=== PATIENT | female | born 2000 | race Caucasian/White ===

== ENCOUNTER 2024-05-25 07:56 | Outpatient (REF) | payer OTHER, SELFPAY ==
--- NOTE | 2024-05-25 08:11 | ECG_ITS ---
Test Reason : QTC CHECK Blood Pressure : / mmHG Vent. Rate : 078 BPM Atrial Rate : 078 BPM P-R Int : 122 ms QRS Dur : 088 ms QT Int : 410 ms P-R-T Axes : 026 034 028 degrees QTc Int : 467 ms Normal sinus rhythm with sinus arrhythmia Normal ECG No previous ECGs available Referred By: Rebekah Miramontes Electronically Signed By:Chai Navarrete
[2024-05-25 08:29] LABS: MANUAL DIFF FLAG NO
[2024-05-25 09:20] LABS: Basophils Percent Auto 0.5 % (0-2); Eosinophils Absolute Auto 0.2 X10*3/uL (0.0-0.4); Eosinophils Percent Auto 2.4 % (0-4); Hematocrit 41.7 % (37.0-47.0); Hemoglobin 14.3 g/dl (12.0-16.0); Imm Gran Abs Auto 0.01 X10*3/uL (0.00-0.03); Imm Gran Pct Auto 0.1 % (0.0-0.4); Lymphocytes Absolute Auto 2.9 X10*3/uL (1.2-4.9); Lymphocytes Percent Auto 36.1 % (20-40); Mean Corpuscular HGB Conc 34.3 g/dl (31.0-35.0); Mean Corpuscular Hemoglobin 30.2 pg (27.0-33.0); Mean Platelet Volume 9.1 fL (9.4-12.3); Monocytes Absolute Auto 0.6 X10*3/uL (0.1-1.2); Monocytes Percent Auto 6.9 % (2-11); Neutrophils Absolute Auto 4.3 x10*3/uL (2.0-8.3); Platelet Count 421 X10*3/uL (160-400); Red Blood Count 4.74 X10*6/uL (4.20-5.50); Red Cell Distribution Width 11.9 % (11.0-16.0)
[2024-05-25 09:28] LABS: Estimated Average Glucose 108 mg/dL; Hemoglobin A1c % 5.4 % (<6.0)
[2024-05-25 09:57] LABS: Alanine Aminotransferase 20 U/L (0-31); Albumin Level 4.3 g/dL (3.5-5.0); Alkaline Phosphatase 81 U/L (39-117); Anion Gap 12 (12-20); Aspartate Amino Transferase 19 U/L (5-31); Bilirubin Total 0.3 mg/dL (0.0-1.0); Blood Urea Nitrogen 8 mg/dL (9-16); C Reactive Protein 1.83 mg/dL (< or = 0.50); Calcium 9.5 mg/dL (8.4-10.2); Carbon Dioxide 24 mmol/L (22-29); Chloride 108 mmol/L (96-108); Cholesterol 203 mg/dL (<200); Estimated Glomerular Filt Rate > 60; Glucose Fasting 105 mg/dL (60-99); HDL Cholesterol 40 mg/dL (>40); Iron 53 mcg/dL (30-160); LDL Cholesterol Calculated 147 mg/dL (<100); Magnesium 1.8 mg/dL (1.6-2.6); Percent Iron Saturation 20 % (15-50); Potassium 4.1 mmol/L (3.3-5.1); Sodium 140 mmol/L (135-145); Total Iron Binding Capacity 264 mcg/dL (228-428); Total Protein 7.6 g/dL (6.5-8.0); Triglycerides 84 mg/dL (<150); Unsaturated Iron Binding 211 ug/dL
[2024-05-25 09:59] LABS: Erythrocyte Sedimentation Rate 28 MM/HR (0-20)
[2024-05-25 10:24] LABS: Ferritin 43 ng/mL (10-122); Free T4 (Free Thyroxine) 0.98 ng/dL (0.71-1.85); HCG Quantitative < 2 mIU/mL; Thyroid Stimulating Hormone 1.39 uIU/mL (0.32-4.0); Vitamin D 25-OH Total 33.4 ng/mL (>30)
[2024-05-25 10:57] LABS: Folate 9.2 ng/mL (> or = 4.0); Vitamin B12 566 pg/mL (200-900)
[2024-05-26 07:03] LABS: Prolactin 9.2 ng/mL
[2024-05-28 15:28] LABS: Anti Nuclear Antibody Screen NEGATIVE (NEGATIVE)
== END 2024-05-25 07:57 | disposition home or self-care (01) ==
LOC: HO.LAB 07:56
PROVIDERS: PCP Nurse Practitioner Family; Visit Provider Psychiatry & Neurology Psychiatry
DX: F39 Unspecified mood [affective] disorder (principal); F41.0 Panic disorder [episodic paroxysmal anxiety]
CPT/HCPCS: 36415; 80053; 80061; 82306; 82607; 82728; 82746; 83036; 83540; 83735; 84146; 84439; 84443; 84702; 85025; 85652; 86038; 86140; 93005

== ENCOUNTER → 2024-05-25 08:11 | Outpatient (BNV) | payer OTHER, SELFPAY | PROVIDERS: PCP Nurse Practitioner Family; Visit Provider Internal Medicine Cardiovascular Disease | DX: F41.0 Panic disorder [episodic paroxysmal anxiety] (principal); F39 Unspecified mood [affective] disorder | CPT/HCPCS: 93010 ==

== ENCOUNTER 2024-05-30 10:00 | Outpatient (RCR) | payer OTHER, SELFPAY ==
[2024-05-17 10:42] VITALS: BP 104/70; PULSE 80; TEMP 37
[2024-05-17 10:47] VITALS: BMI 41.4
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
--- NOTE | 2024-05-17 15:13 | HO.PHP ---
Pt's case was opened and review in team.
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
--- NOTE | 2024-05-23 15:38 | HO.PHP ---
Spout Liner checked in with pt before pt left at the end of the day to assess pt's emotional state due to patients emtional reaction in the morning group and her processing of traumatic events. Pt did well identifying several supports and activities she will engage in later today that she finds soothing and grounding. Pt expressed appreciation for the group's support and recognized the emotions and the physical effects, how she mychal. Pt reports she will bring up her recent triggers with her therapist. Pt reports she is safe, future-oriented.
--- NOTE | 2024-05-24 10:02 | HO.PHP ---
PHP staff member faxed over a referral for med management to [facility]. PHP staff member is awaiting a call with appointment dates and times for Dina Cabrera.
--- NOTE | 2024-05-24 16:45 | HO.PHP ---
Pt was tearful in the hallway after the coping skills group at 11:40. Director Of Food And Nutrition and pt met at length to discuss what triggered her. Pt stated she began to think of her father and her 16 year old dog, both of whom she lost fairly recently. Pt sobbed for some time, processed some of her feelings. Pt was able to calm and speak about them fondly and acknowledged she has not really grieved, stated she did not get to see him before he so feels she did not get closure. Pt stated she does not often feel this sad but admitted groups have been bringing up strong emotions. Pt was encouraged to talk more about her grief with her therapist and to engage in comforting activities that help her with her grief in a safe way. Pt identified healthy ways to remember her father including hikes, listening to select songs and pt identifed coping skills to implement when feeling triggered in group including essential oils, deep breathing, and physical movements. Pt stated she wanted to go for a walk so would leave early for today, pt reported she was safe, no SI. Pt met with MAGO werner before leaving for the day.
--- NOTE | 2024-05-25 | P.PNPSP_ITS ---
Subjective Subjective Date of Service: 05/25/24 Reason For Visit: MDD,PTSD,ADHD Interim History: Patient continues to struggle with emotional reactivity and attention regulation. Patient has been on Vyvanse but has not taken in past 2 days, will have to check if she ran out. Rumination continues to be an issue. Is conflicted about medication changes. States preference is still to ween off medications, but is struggling with maintaining any stability. Will plan to check lab work and EKG. She has a history of TBI in infancy and had seizures until 2nd grade. Concerta at 54 mg caused seizures, which she said she warned her doctor about, and was switched to a lower dose of Vyvanse after patient was given 40 mg and still felt this was too high. She has been on 10 mg although can not give a clear account as to whether this is effective. SHe is also on Lamictal as a mood stabilizer, but perhaps this also helps mitigate risk of seizures from stimulant medication. For now will continue current dose. Medication Compliance: Yes Side effects from medications: No Attending Groups: Yes Review of Systems Acute medical concerns: No Mental Status Exam Mental Status Exam Narrative: Alert, oriented, in no acute distress. Calm, cooperative. Mood anxious, affect calmer, less reactive. Speech normal. Thought process linear, coherent, more goal-directed. Thought content related to stressors, future-oriented, transient hopelessness, denies any SI/i/u/p.?No paranoia or delusional content elicited. No evidence of psychosis. Insight and judgment intact. Diagnostics Vital Signs (24Hr): BMI result Body Mass Index 41.4 Assessment & Plan Assessment & Plan (1) MDD (major depressive disorder), recurrent episode: Status: Acute Code(s): F33.9 - Major depressive disorder, recurrent, unspecified (2) Complicated bereavement: Status: Acute Code(s): F43.21 - Adjustment disorder with depressed mood (3) Other specified persistent mood disorders: Status: Acute Code(s): F34.89 - Other specified persistent mood disorders (4) ADHD (attention deficit hyperactivity disorder): Qualifiers: Attention deficit-hyperactivity disorder type: other specified Qualified Code(s): F90.8 - Attention-deficit hyperactivity disorder, other type Status: Acute Code(s): F90.9 - Attention-deficit hyperactivity disorder, unspecified type (5) CAMI (generalized anxiety disorder): Status: Acute Code(s): F41.1 - Generalized anxiety disorder Plan Continue regular medications continue Lamictal 200 mg BID continue Vyvanse 10 mg qam continue perphenazine 4 mg BID pending lab work, EKG continue to monitor Patient educated on: diagnosis and medication risk/benefits Informed Consent: understands Reason for contiued partial hosp. stay Substantial Risk for: inability to function and med/psych decompensation Certification I certify that partial hospital treatment is medically necessary due to the symptoms and problems resulting from the patient's mental illness and the failure to treat the patient at the partial hospital level of care would likely result in the patient requiring inpatient psychiatric care which could not be prevented at a less intensive level of care. Total time managing care of this patient today __30__ minutes. Discharge Plan Discharge Attending provider: Rebekah Miramontes Additional Instructions: 05/31/2024? ?10:00 AM - 11:00 AM CHD Adult Comprehensive Assessment Prog: [facility] Clinic Site: [address] [place] [address] Staff: KIKI WILLIS 07/12/2024? ?1:00 PM - 02:00 PM Psychiatric E/M New - Telehealth v2 Prog: Psychiatric Services Site: [address] [place] [address] Staff: CLAUDIO NOBLE Medications: New metformin 500 mg tablet 250 mg PO BID Qty: 30 0RF guanfacine 1 mg tablet extended release 24 hr 1 mg PO DAILY Qty: 30 0RF lisdexamfetamine [Vyvanse] 20 mg capsule 20 mg PO QAM Qty: 30 0RF Rx Instructions: =BRAND NAME ONLY= cholecalciferol (vitamin D3) [Vitamin D3] 125 mcg (5,000 unit) tablet 125 mcg PO DAILY Qty: 30 1RF Continued lamotrigine [Lamictal] 200 mg Tablet 200 mg PO BID clonazepam 1 mg Tablet 1 mg PO DAILY PRN (Reason: Severe anxiety or Seizure like activity.) perphenazine 4 mg Tablet 4 mg PO BID Discontinued escitalopram oxalate [Lexapro] 5 mg Tablet 5 mg PO DAILY Patient Comments: Patient is being tapered off this medication. Last filled May 07, 2023 for 30 tabs. Stated she stopped taking 3 days ago as she did not want to continue on this medication. Rx Instructions: Patient is being tapered off this medication. Last filled May 07, 2023 for 30 tabs. Stated she stopped taking 3 days ago as she did not want to continue on this medication. lisdexamfetamine [Vyvanse] 10 mg Capsule 10 mg PO DAILY Stand Alone Forms: Patient Portal Discharge page Patient Education: Depression (DC) Print Language: Czech
--- NOTE | 2024-05-28 21:30 | HO.PHPPROGNO ---
Subjective Subjective Date of Service: 05/28/24 Reason For Visit: MDD,PTSD,ADHD Interim History: A lot of stuff going on . Saw her sister recently, says she relapsed and looks terrible. Was upsetting to see her in that state. Has been struggling with organization, staying on top of tasks, has been driving my starting chores but not finishing. Getting easily overwhelmed, at one point completely confused about sink being outside of the bathroom ( was fixing the bathroom). Getting frustrated quickly and then having to catch herself. Says she has been struggling without the Vyvanse which she ran out earlier in the week. Previously prescribed Vyvanse 40 mg but felt this was too strong and was cut back to 10 mg qd which is not enough. She did notice feeling more anxious at higher dose, has not been on guanfacine and will plan to uncrease dose of Vyvanse to 20 mg and can simultaneously start on guanfacine ER 1 mg. Reports experiencing considerable (unintentional) weight gain in past 40-60 lbs in the past year. Also looking for [facility] paperwork. Medication Compliance: Yes Side effects from medications: No Attending Groups: Yes Review of Systems Acute medical concerns: No Mental Status Exam Mental Status Exam Narrative: Alert, oriented, in no acute distress. Calm, cooperative, engaged. No psychomotor agitation or neurovegetative retardation. Eye contact maintained. Mood stressed , affect variable, anxious. Speech normal. Thought process linear, coherent. Thought content related to bereavement, executive dysfunction, feeling overwhelmed, some transient helplessness and hopelessness, currently denies any passive SI, without intention or plan. Denies any aggressive ideation. No paranoia or delusional content elicited. No evidence of psychosis. Insight and judgment fair but adequate. Diagnostics Vital Signs (24Hr): BMI result Body Mass Index 41.4 Assessment & Plan Assessment & Plan (1) MDD (major depressive disorder), recurrent episode: Status: Acute Code(s): F33.9 - Major depressive disorder, recurrent, unspecified (2) CAMI (generalized anxiety disorder): Status: Acute Code(s): F41.1 - Generalized anxiety disorder (3) ADHD (attention deficit hyperactivity disorder): Status: Acute Code(s): F90.9 - Attention-deficit hyperactivity disorder, unspecified type Plan continue Lamictal 200 mg BID increase Vyvanse to 20 mg qam start guanfacine ER 1 mg qam start metformin 250 mg BID continue perphenazine 4 mg BID Reviewed recent lab work findings, pending remaining labs Continue to monitor Patient educated on: diagnosis and medication risk/benefits Informed Consent: understands Reason for contiued partial hosp. stay Substantial Risk for: inability to function and med/psych decompensation Certification I certify that partial hospital treatment is medically necessary due to the symptoms and problems resulting from the patient's mental illness and the failure to treat the patient at the partial hospital level of care would likely result in the patient requiring inpatient psychiatric care which could not be prevented at a less intensive level of care. Total time managing care of this patient today __30__ minutes. Discharge Plan Discharge Attending provider: Rebekah Miramontes Additional Instructions: 05/31/2024? ?10:00 AM - 11:00 AM CHD Adult Comprehensive Assessment Prog: [facility] Clinic Site: [address] [place] [address] Staff: KIKI WILLIS 07/12/2024? ?1:00 PM - 02:00 PM Psychiatric E/M New - Telehealth v2 Prog: Psychiatric Services Site: [address] [place] [address] Staff: CLAUDIO NOBLE Medications: New metformin 500 mg tablet 250 mg PO BID Qty: 30 0RF guanfacine 1 mg tablet extended release 24 hr 1 mg PO DAILY Qty: 30 0RF lisdexamfetamine [Vyvanse] 20 mg capsule 20 mg PO QAM Qty: 30 0RF Rx Instructions: =BRAND NAME ONLY= Continued lamotrigine [Lamictal] 200 mg Tablet 200 mg PO BID clonazepam 1 mg Tablet 1 mg PO DAILY PRN (Reason: Severe anxiety or Seizure like activity.) perphenazine 4 mg Tablet 4 mg PO BID Discontinued escitalopram oxalate [Lexapro] 5 mg Tablet 5 mg PO DAILY Patient Comments: Patient is being tapered off this medication. Last filled May 07, 2023 for 30 tabs. Stated she stopped taking 3 days ago as she did not want to continue on this medication. Rx Instructions: Patient is being tapered off this medication. Last filled May 07, 2023 for 30 tabs. Stated she stopped taking 3 days ago as she did not want to continue on this medication. lisdexamfetamine [Vyvanse] 10 mg Capsule 10 mg PO DAILY Stand Alone Forms: Patient Portal Discharge page Patient Education: Depression (DC) Print Language: Citizen [place] Telehealth Telehealth Telehealth Platform: Other (please specify) Location of provider rendering services: other (private office) Location of patient: other ([facility]) Patient Identification confirmed using: Name, : Yes Telehealth method: video Patient verbally consented to treatment: Yes
--- NOTE | 2024-05-29 23:36 | HO.PHPPROGNO ---
Subjective Subjective Date of Service: 05/29/24 Reason For Visit: MDD,PTSD,ADHD Interim History: Patient seen for follow-up, anticipating discharge at the end of program tomorrow.? PFMLA paperwork completed. She is tolerating Vyvanse 20 mg and guanfacine ER 1 mg. Reports no acute issues or concerns. Medication compliant, medications well-tolerated. Denies any adverse effects.? Mood is stable.? Denies any hopelessness or SI. Denies thoughts of harming self or others at this time. Denies any aggressive ideation or HI. Denies any paranoia or AH or VH. Sleep, appetite, energy stable. Medication Compliance: Yes Side effects from medications: No Attending Groups: Yes Review of Systems Acute medical concerns: No Mental Status Exam Mental Status Exam Narrative: Alert, oriented, in no acute distress. Calm, cooperative. Mood anxious, affect calmer, less reactive. Speech normal. Thought process linear, coherent, more goal-directed. Thought content related to stressors, future-oriented, transient hopelessness, denies any SI/i/u/p.?No paranoia or delusional content elicited. No evidence of psychosis. Insight and judgment intact. Diagnostics Vital Signs (24Hr): BMI result Body Mass Index 41.4 Assessment & Plan Assessment & Plan (1) MDD (major depressive disorder), recurrent episode: Status: Acute Code(s): F33.9 - Major depressive disorder, recurrent, unspecified (2) CAMI (generalized anxiety disorder): Status: Acute Code(s): F41.1 - Generalized anxiety disorder (3) ADHD (attention deficit hyperactivity disorder): Status: Acute Code(s): F90.9 - Attention-deficit hyperactivity disorder, unspecified type (4) Complicated bereavement: Status: Acute Code(s): F43.21 - Adjustment disorder with depressed mood (5) Other specified persistent mood disorders: Status: Acute Code(s): F34.89 - Other specified persistent mood disorders Plan Discharge from [facility] Continue regular medications continue Lamictal 200 mg BID continue Vyvanse 20 mg qam continue guanfacine ER 1 mg qam-BID (AM, PM) continue metformin 250 mg BID continue perphenazine 4 mg BID start vitamin D3 5000 IU qd Refills sent to pharmacy Will defer further medication management to outpatient provider *Safety plan reviewed *Discharge diagnoses, treatment course, discharge plan have been reviewed with patient (including medication regime, medication management, potential side effects) as well as treatment rationale were also revisited *Discharge paperwork signed and given to patient, copy sent for scanning to chart Patient educated on: diagnosis and medication risk/benefits Informed Consent: understands Reason for contiued partial hosp. stay Substantial Risk for: stable for discharge Certification I certify that partial hospital treatment is medically necessary due to the symptoms and problems resulting from the patient's mental illness and the failure to treat the patient at the partial hospital level of care would likely result in the patient requiring inpatient psychiatric care which could not be prevented at a less intensive level of care. Total time managing care of this patient today ____ minutes. Discharge Plan Discharge Attending provider: Rebekah Miramontes Additional Instructions: 05/31/2024? ?10:00 AM - 11:00 AM CHD Adult Comprehensive Assessment Prog: [facility] Site: [address] [place] [address] Staff: KIKI IWLLIS 07/12/2024? ?1:00 PM - 02:00 PM Psychiatric E/M New - Telehealth v2 Prog: Psychiatric Services Site: [address] [place] [address] Staff: CLAUDIO NOBLE Medications: New metformin 500 mg tablet 250 mg PO BID Qty: 30 0RF guanfacine 1 mg tablet extended release 24 hr 1 mg PO DAILY Qty: 30 0RF lisdexamfetamine [Vyvanse] 20 mg capsule 20 mg PO QAM Qty: 30 0RF Rx Instructions: =BRAND NAME ONLY= cholecalciferol (vitamin D3) [Vitamin D3] 125 mcg (5,000 unit) tablet 125 mcg PO DAILY Qty: 30 1RF Continued lamotrigine [Lamictal] 200 mg Tablet 200 mg PO BID clonazepam 1 mg Tablet 1 mg PO DAILY PRN (Reason: Severe anxiety or Seizure like activity.) perphenazine 4 mg Tablet 4 mg PO BID Discontinued escitalopram oxalate [Lexapro] 5 mg Tablet 5 mg PO DAILY Patient Comments: Patient is being tapered off this medication. Last filled May 07, 2023 for 30 tabs. Stated she stopped taking 3 days ago as she did not want to continue on this medication. Rx Instructions: Patient is being tapered off this medication. Last filled May 07, 2023 for 30 tabs. Stated she stopped taking 3 days ago as she did not want to continue on this medication. lisdexamfetamine [Vyvanse] 10 mg Capsule 10 mg PO DAILY Stand Alone Forms: Patient Portal Discharge page Patient Education: Depression (DC) Print Language: Macedonian
--- NOTE | 2024-05-30 06:59 | HO.PHP ---
PHP staff member received the appointments from Allyson through [facility] with Dina's appointments. 05/31/2024? ?10:00 AM - 11:00 AM CHD Adult Comprehensive Assessment Prog: [facility] Site: [address] [place] [address] Staff: KIKI WILLIS 07/12/2024? ?1:00 PM - 02:00 PM Psychiatric E/M New - Telehealth v2 Prog: Psychiatric Services Site: [address] [place] [address] Staff: CLAUDIO NOBLE
--- NOTE | 2024-05-31 12:20 | PC.NURSE ---
Dr Miramontes is aware of patient lab results and EKG results including QTC 467.
== END 2024-05-30 23:59 | disposition home or self-care (01) ==
LOC: HO.PHPA 10:00
PROVIDERS: Visit Provider Psychiatry & Neurology Psychiatry
DX: F33.9 Major depressive disorder, recurrent, unspecified (principal); F43.21 Adjustment disorder with depressed mood; F41.1 Generalized anxiety disorder; F34.89 Other specified persistent mood disorders; F90.8 Attention-deficit hyperactivity disorder, other type; Z79.899 Other long term (current) drug therapy
CPT/HCPCS: 90791; 90853